=== PATIENT | female | born 1975 | race Two or more races ===

== ENCOUNTER 2017-07-12 19:44 | Observation (INO) | payer SELFPAY ==
[~2017-07-12] VITALS: Ht 165.1 cm; Wt 93.0 kg
[2017-07-12 19:50] VITALS: BP 151/90
[2017-07-12] MEDS ORDERED: ASPirin 81 mg TAB PO ONE (21:00)
== END 2017-07-12 21:05 | disposition home or self-care (01) | DRG 313 ==
LOC: EDSEX 19:44 → ER 19:44 → OVERFLOW 20:56 → ER 21:05
PROVIDERS: ADMIT Family Medicine; ATTEND Family Medicine
DX: R07.9 Chest pain, unspecified (principal); R10.9 Unspecified abdominal pain
CPT/HCPCS: 93005; 99281; G0378